=== PATIENT | female | born 1980 | race Asian ===

== ENCOUNTER 2018-12-04 01:03 | Emergency (ER) | payer OTHER ==
[~2018-12-04] VITALS: Ht 162.6 cm; Wt 41.7 kg
[2018-12-04 03:02] VITALS: BP 100/62
--- NOTE | 2018-12-04 03:12 | NUR ---
AT THE BED SIDE
--- NOTE | 2018-12-04 03:32 | NUR ---
Patient discharged to home in stable condition. Written and verbal after care instructions given. Patient verbalizes understanding of instruction.
== END 2018-12-04 03:32 | disposition home or self-care (01) ==
LOC: ER 01:09
DX: F41.9 Anxiety disorder, unspecified (principal); R00.2 Palpitations